=== PATIENT | female | born 2005 | race Hispanic/Latino ===

== ENCOUNTER 2025-10-02 08:07 | Day surgery (SDC) | payer OTHER ==
[2025-09-29 10:44] VITALS: BMI 20.7
[2025-10-02] MEDS ORDERED: PROPOFOL 20 ML ONE ×2 (09:35)
[2025-10-02] MEDS ORDERED: Lidocaine 4% PF 5 ML AMP ONE (09:35)
[2025-10-02] MEDS ORDERED: Lidocaine 1% PF 5 ML VIAL ONE ×2 (09:36→09:38)
[2025-10-02] MEDS ORDERED: AFRIN NASAL MIST 15 ML BOT ONE (10:03)
[2025-10-02] MEDS ORDERED: Hydrocodone-Acetamin 15 ML UDCUP ONE (12:44)
[2025-10-02] MEDS ORDERED: Ondansetron PF 4 MG/2 ML Vial ONE (12:47)
== END 2025-10-02 13:45 | disposition home or self-care (01) ==
LOC: CSHSDC 08:07
PROVIDERS: ATTEND Otolaryngology
PROC: 0CBPXZZ Excision of Tonsils, External Approach (ICD-10-PCS; principal; 2025-10-02)
PROC: 0CBQ0ZZ Excision of Adenoids, Open Approach (ICD-10-PCS; principal; 2025-10-02)
DX: J35.01 Chronic tonsillitis (principal)
CPT/HCPCS: 88304; J1100; J2003; J2250; J2405; J2704; J3010